=== PATIENT | male | born 1950 | race Caucasian/White ===

== ENCOUNTER → 2016-11-22 | Outpatient (REF) | payer MEDICARE, OTHER ==
[~2016-11-22] MED LIST: /TAMS4CA PO; LIPI20TA; PRIL20CA; TYLE325T5 PO
[2016-11-22 13:48] LABS: BACTERIA, URINE NONE SEEN; RBC, URINE 40-50 /hpf (0-3); SQUAMOUS EPITHELIAL CELL URINE SMALL AMOUNT /hpf (SMALL AMT)
[2016-11-22 13:49] LABS: HYALINE CAST, URINE NONE SEEN /lpf (0-1); MICROSCOPIC EXAM PERFORMED
== END ==
LOC: M LAB REF 13:01
PROVIDERS: ATTEND Nurse Practitioner Adult Health
DX: C18.9 Malignant neoplasm of colon, unspecified (principal); R31.9 Hematuria, unspecified

== ENCOUNTER → 2016-12-15 | Outpatient (REF) | payer MEDICARE, OTHER | LOC: M SMT 12:54 | PROVIDERS: ATTEND Nurse Practitioner Women's Health | DX: R31.29 Other microscopic hematuria (principal) | CPT/HCPCS: 81001; 87086; 88108; G0463 ==

== ENCOUNTER → 2016-12-23 | Outpatient (CLI) | payer MEDICARE, OTHER ==
[~2016-12-23] MED LIST changes: +ISOVUE-370 76% 100ML VIAL (Q9967) As Ordered ONE
--- NOTE | 2016-12-23 09:06 | REP ---
Clinical: Microscopic hematuria. Technique: Axial precontrast, contrast enhanced, and delayed images of the abdomen and pelvis using 100 ml Isovue 370 intravenous contrast material with multiplanar re-formations and multi rotational MIP urogram. Comparison: 05/26/2008, 11/08/2013. Findings: Evaluation of the urinary tract system demonstrates a 4.5 mm nonobstructing right renal calculus. The kidneys demonstrate normal, symmetric enhancement and excretion patterns without hydroureteronephrosis. No renal cystic or mass lesions are identified. The collecting systems appear normal. The bladder is unremarkable although focal area of mass effect measuring 1.7 cm along the posterior aspect of the bladder is likely related to enlarged prostate gland. Liver, spleen, pancreas, gallbladder, bilateral adrenal glands are normal. The enteric system is without obstruction or acute inflammatory process. Scattered diverticula noted without acute diverticulitis. Normal terminal ileum and appendix identified in the right lower quadrant. Pelvis demonstrates prior partial rectosigmoid resection and anastomoses. Prostate gland is mildly enlarged and demonstrates presumed focal mass effect along the posterior aspect of the bladder measuring 1.7 cm. No ascites. No adenopathy. Mild atherosclerotic changes of the aorta and vasculature without aneurysm or dissection. Surrounding musculoskeletal structures without focal osseous abnormality. Lung bases demonstrate minimal linear fibro atelectatic changes. Impression: 1. 4.5 mm nonobstructing right renal calculus, and otherwise normal appearance to the kidneys and ureters. 2. 1.7 cm soft tissue focus along the posterior aspect of the bladder likely representing mass effect from the prostate gland and correlation with cystoscopy to an warranted. 3. Scattered diverticula without acute diverticulitis. 4. Linear fibro atelectatic changes at the lung bases. Signed by Aiden Lunsford MD 12/23/2016 08:58 A
== END ==
LOC: M RAD 07:52
PROVIDERS: ATTEND Nurse Practitioner Women's Health
DX: R31.29 Other microscopic hematuria (principal); N20.0 Calculus of kidney; K57.30 Diverticulosis of large intestine without perforation or abscess without bleeding; R93.5 Abnormal findings on diagnostic imaging of other abdominal regions, including retroperitoneum
CPT/HCPCS: 52000; 74178; Q9967

== ENCOUNTER → 2017-03-22 | Outpatient (CLI) | payer MEDICARE, OTHER ==
[~2017-03-22] MED LIST changes: -ISOVUE-370 76% 100ML VIAL (Q9967) As Ordered ONE
== END ==
LOC: M SMT 09:14
PROVIDERS: ATTEND Nurse Practitioner Women's Health
DX: R31.29 Other microscopic hematuria (principal); Z12.5 Encounter for screening for malignant neoplasm of prostate
CPT/HCPCS: 36415; 81001; G0103

== ENCOUNTER → 2017-11-17 | Outpatient (CLI) | payer MEDICARE, OTHER ==
[2017-11-19 00:06] LABS: PSA TOTAL 0.2 ng/mL (0.0-4.0)
== END ==
LOC: M SMT 10:43
DX: N40.1 Benign prostatic hyperplasia with lower urinary tract symptoms (principal)
CPT/HCPCS: 84154

== ENCOUNTER → 2017-11-21 | Outpatient (REF) | payer MEDICARE, OTHER ==
[2017-11-21 12:46] LABS: CARCINOEMBRYONIC ANTIGEN < 0.5 NG/ML (<2.5)
== END ==
LOC: M LAB REF 12:04
DX: Z85.038 Personal history of other malignant neoplasm of large intestine (principal)
CPT/HCPCS: 82378

== ENCOUNTER → 2018-02-21 | Outpatient (CLI) | payer MEDICARE, OTHER | LOC: M RAD 11:02 | DX: N40.1 Benign prostatic hyperplasia with lower urinary tract symptoms (principal); N32.89 Other specified disorders of bladder | CPT/HCPCS: 76857 ==

== ENCOUNTER → 2018-11-29 | Outpatient (REF) | payer MEDICARE, OTHER ==
[~2018-11-29] MED LIST changes: -/TAMS4CA PO; +FLOM0.4C39 PO
[2018-11-30 14:26] LABS: PSA TOTAL 0.2 ng/mL (0.0-4.0)
== END ==
LOC: M LAB REF 12:40
PROVIDERS: ATTEND Nurse Practitioner Adult Health
DX: N40.1 Benign prostatic hyperplasia with lower urinary tract symptoms (principal)

== ENCOUNTER 2019-02-11 10:23 | Day surgery (SDC) | payer MEDICARE, OTHER ==
[~2019-02-11] VITALS: Ht 177.8 cm; Wt 85.7 kg
[~2019-02-11 10:23] MED LIST changes: +ACET-907 PO; +FINA5TAB2 PO; +LIPI20TA PO; +LISI-1046 PO; +NS 1,000 ML IV ONE; +OMEP20CA3 PO
--- NOTE | 2019-02-11 11:30 | ROOR ---
Patient Name: Ryan Bosch Procedure Date: 02/11/2019 11:08 AM Date of : 1950 Age: 68 Room: [facility] Gender: Male Note Status: Finalized Procedure: Total Colonoscopy to Cecum Indications: Rectal bleeding, Abnormal CT of the GI tract Providers: Marcio Cunningham MD Referring MD: Marcia Dutta NP Requesting Provider: Medicines: Monitored Anesthesia Care Complications: No immediate complications. Procedure: Pre-Anesthesia Assessment: - The heart rate, respiratory rate, oxygen saturations, blood pressure, adequacy of pulmonary ventilation, and response to care were monitored throughout the procedure. The Colonoscope was introduced through the anus and advanced to the cecum, identified by appendiceal orifice and ileocecal valve. The colonoscopy was performed without difficulty. The patient tolerated the procedure well. The quality of the bowel preparation was excellent. Findings: The perianal and digital rectal examinations were normal. Non-bleeding internal hemorrhoids were found during retroflexion. The hemorrhoids were small and Grade I (internal hemorrhoids that do not prolapse). Multiple small and large-mouthed diverticula were found in the recto-sigmoid colon, sigmoid colon and descending colon. The exam was otherwise without abnormality on direct and retroflexion views. Impression: - Non-bleeding internal hemorrhoids. - Diverticulosis in the recto-sigmoid colon, in the sigmoid colon and in the descending colon. - The examination was otherwise normal on direct and retroflexion views. - No specimens collected. - The exam was otherwise normal to the cecum. Recommendation: - Patient has a contact number available for emergencies. The signs and symptoms of potential delayed complications were discussed with the patient. Return to normal activities tomorrow. Written discharge instructions were provided to the patient. - Discharge patient to home. - Continue present medications. - Repeat colonoscopy in 10 years for screening purposes. - Return to referring physician. - The findings and recommendations were discussed with the patient's family. Marcio Cunningham MD Marcio Cunningham MD 02/11/2019 11:29:54 AM Electronically signed by Marcio Cunningham MD Number of Addenda: 0 Note Initiated On: 02/11/2019 11:08 AM Estimated Blood Loss: Estimated blood loss: none.
[2019-02-11 11:38] VITALS: BP 143/88
== END 2019-02-11 12:03 | disposition home or self-care (01) ==
LOC: M OPP 10:23
PROVIDERS: ATTEND Internal Medicine Gastroenterology
DX: K64.0 First degree hemorrhoids (principal); K57.30 Diverticulosis of large intestine without perforation or abscess without bleeding; K62.5 Hemorrhage of anus and rectum; R93.3 Abnormal findings on diagnostic imaging of other parts of digestive tract

== ENCOUNTER 2021-04-21 06:38 | Emergency (ER) | payer MEDICARE, OTHER ==
[~2021-04-21] VITALS: Ht 177.8 cm; Wt 91.8 kg
[~2021-04-21 06:38] MED LIST changes: -LISI-1046 PO; +LISI2.5T9 PO; -NS 1,000 ML IV ONE; +OMEP1CAP73 PO; -OMEP20CA3 PO
[2021-04-21 07:54] LABS: BLOOD UREA NITROGEN 14 MG/DL (7-18); CALCIUM LEVEL 8.8 MG/DL (8.8-10.2); CARBON DIOXIDE LEVEL 25 MEQ/L (21-32); CHLORIDE LEVEL 110 MEQ/L (98-107); CPK CREATINE PHOSPHOKINASE 83 U/L (39-308); CREATININE FOR GFR 0.86 MG/DL (0.70-1.30); GLOMERULAR FILTRATION RATE > 60.0 (>42); GLUCOSE, FASTING 99 MG/DL (70-100); POTASSIUM SERUM 3.9 MEQ/L (3.5-5.1); SODIUM LEVEL 142 MEQ/L (136-145); TROPONIN I < 0.02 NG/ML (< 0.10)
[2021-04-21 07:55] LABS: BASO % 0.5 % (0.0-1.0); EOS # 0.1 10^3/uL (0.0-0.5); EOS % 3.5 % (0.0-3.0); LYMPH % 26.2 % (24.0-44.0); MEAN CORPUSCULAR HEMOGLOBIN 32.1 pg (27.0-33.0); MEAN CORPUSCULAR HGB CONC 34.1 g/dl (32.0-36.5); MONO # 0.5 10^3/uL (0.0-0.8); MONO % 11.8 % (2.0-8.0); NEUTROPHILS # 2.3 10^3/uL (1.5-8.5); PLATELET COUNT, AUTOMATED 181 10^3/uL (150-450); RED BLOOD COUNT 4.68 10^6/uL (4.30-6.10)
--- NOTE | 2021-04-21 08:13 | REP ---
INDICATION: CHEST PAIN. COMPARISON: 11/08/2013 TECHNIQUE: Portable FINDINGS: The technique utilized in obtaining the radiograph has magnified the cardiac silhouette and accentuated the interstitial markings. There is mild cardiomegaly accentuated by technique. The lung bowling are clear and unchanged. The costophrenic angles have not been included on the radiograph. Tiny effusions cannot be ruled. There is no change in the osseous structures. IMPRESSION: There is no acute cardiopulmonary disease. Exam limitations as described above. <Electronically signed by Jeanmarie Robison > 04/21/21 [id number]
[2021-04-21] MEDS ORDERED: NALOXONE 2MG/2ML SYRINGE (J2310 PER 1MG) As Ordered ONE (10:02)
[2021-04-21 10:40] LABS: CK-MB VALUE MASS < 1.0 NG/ML (<3.6); CPK CREATINE PHOSPHOKINASE 79 U/L (39-308); MB/CK RELATIVE INDEX 1.27 (< OR =4); TROPONIN I < 0.02 NG/ML (< 0.10)
[2021-04-21] MEDS ORDERED: VALSARTAN 80 MG TAB (DIOVAN) PO ONE (10:55)
[2021-04-21 11:11] VITALS: BP 157/98
[2021-04-21] MEDS ORDERED: FAMO20TA5 (12:09)
[2021-04-21] MEDS ORDERED: LISI-898 (12:09)
[2021-04-21] MEDS ORDERED: VALS1TAB67 PO (12:13)
[2021-04-21 12:15] VITALS: BP 143/81
--- NOTE | 2021-04-21 19:06 | ECGEPIP ---
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
== END 2021-04-21 12:58 | disposition home or self-care (01) ==
LOC: M ED 06:38
DX: R07.89 Other chest pain (principal); I10 Essential (primary) hypertension; I44.7 Left bundle-branch block, unspecified; N40.0 Benign prostatic hyperplasia without lower urinary tract symptoms; Z85.038 Personal history of other malignant neoplasm of large intestine; Z90.49 Acquired absence of other specified parts of digestive tract; Z87.891 Personal history of nicotine dependence; Z79.899 Other long term (current) drug therapy

== ENCOUNTER → 2021-05-03 | Outpatient (CLI) | payer MEDICARE, OTHER ==
[~2021-05-03] MED LIST changes: +FAMO20TA5; +LISI-898; +VALS1TAB67 PO
--- NOTE | 2021-05-03 09:48 | REP ---
INDICATION: RUQ PAIN. COMPARISON: Comparison CT study December 23, 2016. TECHNIQUE: Transabdominal right upper quadrant sonography. FINDINGS: Scanning through the right upper quadrant of the abdomen demonstrates a normal sized liver. There is a 0.8 x 0.8 x 0.8 cm hyperechoic nodule in the right lobe of the liver high near the dome of the diaphragm consistent with a benign hemangioma. This is not visible on the prior noncontrast CT study. No other focal liver lesion is seen. The pancreas is obscured by abdominal gas. Common bile duct is normal measuring 0.2 cm in greatest diameter. Echogenic foci are seen within the lumen of the gallbladder consistent with mobile gallstones. No gallbladder wall thickening or pericholecystic fluid is seen. There is no evidence of ascites or right renal abnormality. The right kidney measures 11.9 x 4.9 x 5.6 cm. IMPRESSION: Cholelithiasis. 0.8 cm benign hemangioma the liver. Otherwise negative. <Electronically signed by Cheo Huynh > 05/03/21 [id number]
== END ==
LOC: M RAD 09:03
PROVIDERS: ATTEND Nurse Practitioner Adult Health
DX: R10.11 Right upper quadrant pain (principal); K80.20 Calculus of gallbladder without cholecystitis without obstruction; D18.03 Hemangioma of intra-abdominal structures

== ENCOUNTER → 2022-11-28 | Outpatient (CLI) | payer MEDICARE, OTHER ==
[~2022-11-28] MED LIST changes: -LISI-898; +LISI5TAB11
== END ==
LOC: M LAB 10:38
PROVIDERS: ATTEND Nurse Practitioner Women's Health
DX: Z12.5 Encounter for screening for malignant neoplasm of prostate (principal); Z85.46 Personal history of malignant neoplasm of prostate

== ENCOUNTER → 2022-12-02 | Outpatient (REF) | payer MEDICARE, OTHER ==
[2022-12-02 14:57] LABS: APPEARANCE, URINE CLEAR (CLEAR); BACTERIA, URINE AUTO NEGATIVE (NEGATIVE); BILIRUBIN, URINE AUTO NEGATIVE (NEGATIVE); BLOOD, URINE BLOOD NEGATIVE (NEGATIVE); CALCIUM OXALATE CRYSTALS SMALL; COLOR, URINE YELLOW (YELLOW); GLUCOSE, URINE (UA) AUTO NEGATIVE (NEGATIVE); KETONE, URINE AUTO TRACE mg/dL (NEGATIVE); LEUKOCYTE ESTERASE, URINE AUTO NEGATIVE (NEGATIVE); MUCUS, URINE SMALL (NEGATIVE); NITRITE, URINE AUTO NEGATIVE (NEGATIVE); PROTEIN, URINE AUTO NEGATIVE (NEGATIVE); RBC, URINE AUTO 2 /HPF (0-3); SPECIFIC GRAVITY URINE AUTO 1.021 (1.002-1.035); SQUAMOUS EPITHELIAL CELL UR AU 0 /HPF (0-6); WBC, URINE AUTO 0 /HPF (0-3)
== END ==
LOC: M SMT 13:14
PROVIDERS: ATTEND Physician Assistant
DX: N40.1 Benign prostatic hyperplasia with lower urinary tract symptoms (principal)

== ENCOUNTER → 2022-12-05 | Outpatient (CLI) | payer MEDICARE, OTHER | LOC: M WHC 12:05 | PROVIDERS: ATTEND Nurse Practitioner Adult Health | DX: N63.42 Unspecified lump in left breast, subareolar (principal); N62 Hypertrophy of breast | CPT/HCPCS: 77066; G0279 ==

== ENCOUNTER → 2023-05-04 | Outpatient (REF) | payer MEDICARE, OTHER ==
[2023-05-04 11:10] LABS: APPEARANCE, URINE CLEAR (CLEAR); BACTERIA, URINE AUTO NEGATIVE (NEGATIVE); BILIRUBIN, URINE AUTO NEGATIVE (NEGATIVE); BLOOD, URINE BLOOD NEGATIVE (NEGATIVE); COLOR, URINE YELLOW (YELLOW); GLUCOSE, URINE (UA) AUTO NEGATIVE (NEGATIVE); KETONE, URINE AUTO NEGATIVE (NEGATIVE); LEUKOCYTE ESTERASE, URINE AUTO NEGATIVE (NEGATIVE); MUCUS, URINE SMALL (NEGATIVE); NITRITE, URINE AUTO NEGATIVE (NEGATIVE); PROTEIN, URINE AUTO NEGATIVE (NEGATIVE); RBC, URINE AUTO 1 /HPF (0-3); SPECIFIC GRAVITY URINE AUTO 1.021 (1.002-1.035); SQUAMOUS EPITHELIAL CELL UR AU 0 /HPF (0-6); WBC, URINE AUTO 0 /HPF (0-3)
== END ==
LOC: M SMT 10:13
PROVIDERS: ATTEND Physician Assistant
DX: R31.29 Other microscopic hematuria (principal)

== ENCOUNTER 2024-04-12 11:43 | Emergency (ER) | payer MEDICARE, OTHER ==
[~2024-04-12] VITALS: Ht 175.3 cm; Wt 88.8 kg
[2024-04-12] MEDS: NS 1,000 ML IV SCH (13:12)
[2024-04-12] MEDS: ACETAMINOPHEN 325 MG TAB PO ONE (13:12)
[2024-04-12] MEDS: BENZONATATE 100MG CAPSULE PO ONE (13:21)
[2024-04-12 13:27] LABS: BASO % 0.2 % (0.0-1.0); EOS % 0.2 % (0.0-3.0); HEMATOCRIT 38.2 % (42.0-52.0); HEMOGLOBIN 12.9 g/dl (13.5-17.5); LYMPH # 0.4 10^3/uL (1.5-5.0); LYMPH % 9.8 % (24.0-44.0); MEAN CORPUSCULAR HEMOGLOBIN 31.2 pg (27.0-33.0); MEAN CORPUSCULAR HGB CONC 33.8 g/dl (32.0-36.5); MEAN CORPUSCULAR VOLUME 92.5 fl (80.0-96.0); MONO # 0.3 10^3/uL (0.0-0.8); MONO % 6.4 % (2.0-8.0); NEUTROPHILS # 3.7 10^3/uL (1.5-8.5); NEUTROPHILS % 83.2 % (36.0-66.0); PLATELET COUNT, AUTOMATED 124 10^3/uL (150-450); RED BLOOD COUNT 4.13 10^6/uL (4.30-6.10); WHITE BLOOD COUNT 4.4 10^3/uL (4.0-10.0)
[2024-04-12 13:49] LABS: ALBUMIN 3.7 G/DL (3.2-5.2); ALKALINE PHOSPHATASE 70 U/L (46-116); ALT/SGPT 18 U/L (7.0-40); AST/SGOT 17 U/L (<34); BILIRUBIN,DIRECT 0.4 MG/DL (<0.4); BILIRUBIN,TOTAL 1.3 MG/DL (0.3-1.2); BLOOD UREA NITROGEN 11 MG/DL (9-23); CALCIUM LEVEL 8.1 MG/DL (8.3-10.6); CARBON DIOXIDE LEVEL 27 MMOL/L (20-31); CHLORIDE LEVEL 106 MMOL/L (98-107); GLOMERULAR FILTRATION RATE > 60.0 (>42); GLUCOSE, FASTING 109 MG/DL (74-106); POTASSIUM SERUM 3.6 MMOL/L (3.5-5.1); SODIUM LEVEL 138 MMOL/L (136-145); TOTAL PROTEIN 6.3 G/DL (5.7-8.2)
[2024-04-12 13:51] LABS: THYROID STIMULATING HORMONE 2.245 uIU/ML (0.55-4.78); THYROXINE (T4) 9.3 UG/DL (4.5-10.9)
[2024-04-12 14:13] VITALS: BP 145/75; TEMP 100.4; O2SAT 95
[2024-04-12] MEDS ORDERED: ONDA-282 PO (14:17)
[2024-04-12] MEDS ORDERED: BENZ200C70 PO (14:17)
== END 2024-04-12 14:27 | disposition home or self-care (01) ==
LOC: M ED 11:43
DX: J12.3 Human metapneumovirus pneumonia (principal); I10 Essential (primary) hypertension; E78.5 Hyperlipidemia, unspecified; C18.9 Malignant neoplasm of colon, unspecified; Z79.899 Other long term (current) drug therapy

== ENCOUNTER → 2024-04-18 | Outpatient (REF) | payer MEDICARE, OTHER ==
[~2024-04-18] MED LIST changes: +BENZ200C70 PO; +ONDA-282 PO
== END ==
LOC: M LAB REF 09:58
PROVIDERS: ATTEND Nurse Practitioner Family
DX: R19.7 Diarrhea, unspecified (principal); A08.11 Acute gastroenteropathy due to Norwalk agent

== ENCOUNTER 2024-04-25 02:33 | Emergency (ER) | payer MEDICARE, OTHER ==
[~2024-04-25] VITALS: Ht 175.3 cm; Wt 91.6 kg
[2024-04-25 05:35] LABS: BASO % 0.3 % (0.0-1.0); EOS # 0.1 10^3/uL (0.0-0.5); HEMATOCRIT 36.5 % (42.0-52.0); LYMPH % 13.7 % (24.0-44.0); MEAN CORPUSCULAR HEMOGLOBIN 30.5 pg (27.0-33.0); MEAN CORPUSCULAR HGB CONC 32.9 g/dl (32.0-36.5); MEAN CORPUSCULAR VOLUME 92.6 fl (80.0-96.0); MONO # 0.5 10^3/uL (0.0-0.8); MONO % 7.2 % (2.0-8.0); NEUTROPHILS # 5.6 10^3/uL (1.5-8.5); NEUTROPHILS % 77.5 % (36.0-66.0); PLATELET COUNT, AUTOMATED 240 10^3/uL (150-450); RED BLOOD COUNT 3.94 10^6/uL (4.30-6.10); WHITE BLOOD COUNT 7.2 10^3/uL (4.0-10.0)
[2024-04-25 06:17] LABS: CK-MB VALUE MASS < 1.0 NG/ML (<3.6)
[2024-04-25 06:30] LABS: ALBUMIN 3.3 G/DL (3.2-5.2); ALKALINE PHOSPHATASE 68 U/L (46-116); ALT/SGPT 18 U/L (7.0-40); AST/SGOT 12 U/L (<34); BILIRUBIN,DIRECT 0.4 MG/DL (<0.4); BILIRUBIN,TOTAL 1.4 MG/DL (0.3-1.2); BLOOD UREA NITROGEN 11 MG/DL (9-23); CALCIUM LEVEL 8.9 MG/DL (8.3-10.6); CARBON DIOXIDE LEVEL 27 MMOL/L (20-31); CHLORIDE LEVEL 113 MMOL/L (98-107); CPK CREATINE PHOSPHOKINASE 75 U/L (46-171); CREATININE FOR GFR 0.73 MG/DL (0.70-1.30); GLOMERULAR FILTRATION RATE > 60.0 (>42); GLUCOSE, FASTING 101 MG/DL (74-106); MB/CK RELATIVE INDEX 1.33 (< OR =4); POTASSIUM SERUM 3.7 MMOL/L (3.5-5.1); SODIUM LEVEL 145 MMOL/L (136-145)
[2024-04-25 07:22] LABS: CK-MB VALUE MASS < 1.0 NG/ML (<3.6)
[2024-04-25 07:23] LABS: CPK CREATINE PHOSPHOKINASE 73 U/L (46-171); MB/CK RELATIVE INDEX 1.36 (< OR =4)
[2024-04-25] MEDS ORDERED: AMOX875T2 PO (08:07)
[2024-04-25] MEDS ORDERED: VENTAER INH (08:08)
[2024-04-25] MEDS ORDERED: PRED20TA PO (08:09)
[2024-04-25] MEDS: IPRATROPIUM 0.5MG/ALBUTEROL 2.5MG INH SOL UD 3ML (DUONEB) NEB SCH ×2 (08:14→08:36)
[2024-04-25 08:18] VITALS: BP 132/92; TEMP 97.4; O2SAT 96
== END 2024-04-25 09:14 | disposition home or self-care (01) ==
LOC: M ED 02:33
DX: J43.9 Emphysema, unspecified (principal); J01.90 Acute sinusitis, unspecified; J20.9 Acute bronchitis, unspecified; I10 Essential (primary) hypertension; R82.5 Elevated urine levels of drugs, medicaments and biological substances; Z87.891 Personal history of nicotine dependence; Z79.899 Other long term (current) drug therapy

== ENCOUNTER → 2025-02-06 | Outpatient (CLI) | payer MEDICARE, OTHER ==
[~2025-02-06] MED LIST changes: +AMOX875T2 PO; +PRED20TA PO; +TAMS-18 PO; +VENTAER INH
== END ==
LOC: M RAD 14:41
PROVIDERS: ATTEND Nurse Practitioner Family
DX: R06.02 Shortness of breath (principal)